=== PATIENT | male | born 1950 | race Caucasian/White ===

== ENCOUNTER → 2023-03-06 | Outpatient (CLI) | payer MEDICARE ==
--- NOTE | 2023-03-06 10:24 | PE ---
EXAMINATION TYPE: PET CT fusion skull to thigh DATE OF EXAM: 03/06/2023 COMPARISON: No recent pertinent CT Prior PET/CT: None at this location HISTORY: Prostate cancer TECHNIQUE: Following the intravenous administration of 5.84 mCi gallium PSMA, whole body images are performed from the skull base to the midthigh. Images are reviewed on the computer in the coronal, a xial, and sagittal planes. Reconstructed rotating images are created on independent workstation and reviewed on the computer. A localization and attenuation correction CT is performed in conjunction with the PET scan. DLP: 734.61 mGycm SCAN: Initial Blood glucose: NA mg/dL FINDINGS: NECK: There is normal uptake through the salivary glands. THORAX: No abnormal uptake ABDOMEN: No abnormal uptake PELVIS: Subtle uptake is within the posterior left prostate with an SUV of 7.25. OSSEOUS STRUCTURES: No abnormal uptake. LOCALIZATION CT: Shunt catheter is within the brain ventricular system. Diverticular changes are with in the sigmoid colon COMPARISON: None IMPRESSION: 1. Small focal area of uptake within the left prostate can be compatible with the patient's prostate cancer. 2. No suspicious uptake to suggest metastatic disease.
== END | disposition home or self-care (01) ==
LOC: RADPETMAIN 08:08
PROVIDERS: ATTEND Urology
DX: C61 Malignant neoplasm of prostate (principal)
CPT/HCPCS: 78815; A9596

== ENCOUNTER → 2023-03-11 | Outpatient (CLI) | payer MEDICARE ==
[2023-03-11 19:18] LABS: Basophils # (A) 0.06 X 10*3/uL (0.00-0.10); Eosinophils # (A) 0.22 X 10*3/uL (0.04-0.35); Eosinophils % (A) 3.6 %; HCT 48.7 % (39.6-50.0); HGB 15.8 g/dL (13.0-17.0); Lymphocytes # (A) 1.11 X 10*3/uL (0.90-5.00); Lymphocytes % (A) 18.3 %; MCH 31.7 pg (27.0-32.0); MCHC 32.4 g/dL (32.0-37.0); MCV 97.8 FL (80.0-97.0); Mean Platelet Volume 10.9 FL (9.5-12.2); Monocytes # (A) 0.53 X 10*3/uL (0.20-1.00); Monocytes % (A) 8.7 %; NRBC Per 100 WBC 0 X 10*3/uL (0.00-0.01); Neutrophils # (A) 4.13 X 10*3/uL (1.80-7.70); Neutrophils % (A) 67.9 %; Platelet Count 208 X 10*3/uL (140-440); RBC 4.98 X 10*6/uL (4.40-5.60); RDW 13.5 % (11.5-14.5); WBC 6.08 X 10*3/uL (4.50-10.00)
[2023-03-11 19:23] LABS: Blood Urea Nitrogen 15.5 mg/dL (9.0-27.0); Calcium 9.9 mg/dL (8.7-10.3); Chloride 105 mmol/L (96-109); Glucose 100 mg/dL (70-110); Potassium 4.6 mmol/L (3.5-5.5); Sodium 144 mmol/L (135-145)
[2023-03-11 21:29] LABS: Appearance,Urine Clear (Clear); Bilirubin,Urine Negative (Negative); Blood,Urine Negative (Negative); Color,Urine Yellow (Yellow); Ketones,Urine Negative (Negative); Nitrite,Urine Negative (Negative); Specific Gravity,Urine 1.011 (1.001-1.030); Urobilinogen,Urine 0.2 E.U./DL
[2023-03-11 21:39] LABS: Bacteria,Urine None Seen (None Seen)
== END | disposition home or self-care (01) ==
LOC: LABPAT 11:58
PROVIDERS: ATTEND Urology
DX: Z01.812 Encounter for preprocedural laboratory examination (principal); C61 Malignant neoplasm of prostate
CPT/HCPCS: 80048; 81001; 85025; 86850; 86900; 86901; 87086

== ENCOUNTER → 2023-03-18 | Outpatient (CLI) | payer MEDICARE | END | disposition home or self-care (01) | LOC: LABPAT 09:43 | PROVIDERS: ATTEND Urology | DX: Z01.818 Encounter for other preprocedural examination (principal); I51.7 Cardiomegaly; R94.31 Abnormal electrocardiogram [ECG] [EKG] | CPT/HCPCS: 93005 ==

== ENCOUNTER 2023-03-20 05:49 | Day surgery (SDC) | payer MEDICARE ==
[2023-03-17 12:01] VITALS: BMI 27.1
[~2023-03-20 05:49] MED LIST: HEPARIN SODIUM,PORCINE 5,000 UNIT/ML 1 ML VIAL SQ PRN
[2023-03-20] MEDS ORDERED: ONDANSETRON 4 MG/2 ML VIAL IVP ONE (06:13)
[2023-03-20] MEDS ORDERED: DEXAMETHASONE SOD PHOSPHATE 4 MG/ML 1 ML VIAL IV ONE (06:13)
[2023-03-20] MEDS: LACTATED RINGERS 1,000 ML IV SCH ×2 (06:55→07:00)
[2023-03-20] MEDS ORDERED: MIDAZOLAM 2 MG/2 ML VIAL IV PRN (07:00)
[2023-03-20] MEDS ORDERED: HYDROmorphone 0.5 MG/0.5 ML SYRINGE IVP PRN (07:00)
--- NOTE | 2023-03-20 07:32 | P.HPIHPCON ---
History of Present Illness H&P Date: 03/20/23 Chief Complaint: prostate cancer This is a 73-year-old male with history of [place] 7 prostate cancer. Option of radiation versus robotic radical prostatectomy was discussed with him in detail. aware of the risk which includes but not limited to bleeding, infection, Erec tile dysfunction, urinary incontinence. Discussed the need for postoperative surveillance for cancer recurrence a potential of needing additional treatment. Risk of anesthesia was also discussed. Discussed also with him given his history of ALL SOURCE INTELLIGENCE shunt potential of injury to the shunt potential of significant adhesion might not be able to do the procedure. All this was discussed in detail with him and his . He understood all the risk and agreed to proceed Consent for Procedure: I have explained the operation/procedure to the patient, including the risks, benefits, side effects, alternative therapies (including not receiving the proposed treatment or service), the likelihood of the patient achieving his/her goals, and potential recuperation problems for the procedure/sedation/analgesia, as well as any blood products, if indicated. I also explained to the patient the risks, benefits and side effects of the alternatives, as well as the risks related to not receiving the proposed procedure, care, treatment, or services. Past Medical History Past Medical History: Cancer, GERD/Reflux, Hyperlipidemia, Osteoarthritis (OA), Respiratory Disorder Additional Past Medical History / Comment(s): asbestosis (has a lot of phlegm in the mornings), hx melanoma, hx hydrocephalus, sigmoid diverticulosis found on colonoscopy,steroid injection to ganglion cyst to toe Nov 2015, PRECANCEROUS LESION REMOVED FROM CHEST.LT CATARACT. History of Any Multi-Drug Resistant Organisms: None Reported Past Surgical History: Appendectomy, Joint Replacement, Orthopedic Surgery, Tonsillectomy Additional Past Surgical History / Comment(s): ALL SOURCE INTELLIGENCE shunt, cataracts, skin lesions, [place] knee arthroscopy, colonoscopy with polypectomy,RT total knee,melanoma removed upper mid back, RT EYE CATARCT REMOVED, 01-07-16 TOTAL LT KNEE REPLACMENT, RECENT DENTAL WORK WAS ON AMOXICILLIN. Past Anesthesia/Blood Transfusion Reactions: No Reported Reaction Additional Past Alcohol Use History / Comment(s): Patient smoked briefly for 3-4 years. He denies any medical marijuana, marijuana, street drug use. Patient is retired from [employer] where he worked as a [employer] and [employer]. He lives at home with his . - Past Family History Mother Family Medical History: No Reported History Additional Family Medical History / Comment(s): at age 35. Father Family Medical History: Congestive Heart Failure (CHF) Medications and Allergies Home Medications Medication Instructions Recorded Confirmed Type Simvastatin [Zocor] 20 mg PO DAILY 03/17/23 03/20/23 History Allergies Allergy/AdvReac Type Severity Reaction Status Date / Time No Known Allergies Allergy Verified 03/20/23 06:21 Surgical - Exam - General no distress, no pain - Eyes normal ocular movement, no pale - Respiratory normal expansion, normal respiratory effort - Abdomen Abdomen: soft, non tender Assessment and Plan Assessment: OR for robotic radical prostatectomy with pelvic lymph node dissection
--- NOTE | 2023-03-20 07:43 | P.ANPRN ---
Procedure Note - Anesthesia - Nerve Block Performed Bilateral Erector Spinae Single Time Out Performed: Yes Date of Procedure: 03/20/23 Procedure Start Time: 07:15 Location of Patient: PreOp Indication: Acute Post-Operative Pain, Analgesia, Requested by Surgeon Sedation Type: Sedate with meaningful contact maintained Preparation: Sterile Prep Position: Sitting Catheter: None Needle Types: Pajunk Needle Gauge: 21 Ultrasound used to visualize needle placement: Yes Ultrasound used to observe medication spread: Yes Injectate: 0.5% Ropivacaine (see comment for volume) (Ropivacaine 15ml+NS5ml) Blood Aspirated: No Pain Paresthesia on Injection Noted: No Resistance on Injection: Normal Image Stored and Saved: Yes Events: Uneventful and Well Tolerated
[2023-03-20] MEDS ORDERED: HYDROmorphone (PF) 1 MG/ML ONE (07:44)
[2023-03-20] MEDS ORDERED: SODIUM CHLORIDE 0.9% (PF) 10 ML VIAL ONE (07:44)
[2023-03-20] MEDS ORDERED: ROPIVACAINE 5 MG/ML 30 ML VIAL ONE (07:44)
[2023-03-20] MEDS ORDERED: NEOSTIGMINE 1 MG/ML 10 ML VIAL ONE (07:44)
[2023-03-20] MEDS ORDERED: LIDOCAINE 1% INJ 10MG/ML (20 ML MDV) ONE (07:44)
[2023-03-20] MEDS ORDERED: ROCURONIUM 10 MG/ML (5 ML VIAL) IV ONE (07:44)
[2023-03-20] MEDS ORDERED: fentaNYL (PF) 50 MCG/ML 2 ML AMP ONE (07:44)
[2023-03-20] MEDS ORDERED: MIDAZOLAM 2 MG/2 ML VIAL ONE (07:44)
[2023-03-20] MEDS ORDERED: SUCCINYLCHOLINE CHLORIDE 200 MG/10 ML VIAL IV ONE (07:44)
[2023-03-20] MEDS ORDERED: PROPOFOL 10 MG/ML 20 ML VIAL IV ONE (07:44)
[2023-03-20] MEDS ORDERED: GLYCOPYRROLATE 0.2 MG/ML 2 ML VIAL ONE (07:44)
[2023-03-20] MEDS ORDERED: ONDANSETRON 4 MG/2 ML VIAL IVP PRN (07:58)
[2023-03-20] MEDS ORDERED: HYDROcodone/APAP 5-325MG 1 EACH TAB PO PRN (07:59)
[2023-03-20] MEDS ORDERED: D5-0.45% NACL WITH KCL 20MEQ/L 1,000 ML IV SCH (08:00)
[2023-03-20] MEDS ORDERED: BUPIVACAINE (PF) 0.25% 30 ML VIAL SQ ONE ×3 (08:18→11:57)
[2023-03-20 08:23] VITALS: RESP 16
[2023-03-20] MEDS ORDERED: LACTATED RINGERS 1,000 ML IV ONE (11:57)
--- NOTE | 2023-03-20 12:18 | P.OP ---
Date of Procedure: 03/20/23 Preoperative Diagnosis: Prostate cancer Postoperative Diagnosis: same Procedure(s) Performed: robotic assisted laproscopic radical prostatecomy and bilateral pelvic lymph node dissection Implants: none Anesthesia: MICHELLEA Surgeon: Robinson Fernandes Estimated Blood Loss (ml): 150 Pathology: other (prostate bilateral seminal vesicle and bilateral pelvic lymph node) Condition: stable Disposition: PACU Indications for Procedure: This is a 73-year-old male with history of [place] 7 prostate cancer. Option of radiation versus robotic radical prostatectomy was discussed with him in detail. aware of the risk which includes but not limited to bleeding, infection, Erectile dysfunction, urinary incontinence. Discussed the need for postoperative surveillance for cancer recurrence a potential of needing additional treatment. Risk of anesthesia was also discussed. Discussed also with him given his history of MILITARY LOGISTICS SPECIALIST shunt potential of injury to the shunt potential of significant adhesion might not be able to do the procedure. All this was discussed in detail with him and his . He understood all the risk and agreed to proceed Description of Procedure: After preoperative antibiotics were started, the patient was taken to the operating room. Anesthesia was induced and the patient was placed in a supine position, with adequate padding of the pressure points, shoulders, back, legs and arms. He was then prepped and draped in the standard fashion. A critical pause was performed using two patient identifiers. A 16F dooley catheter was placed to gravity drainage. A pneumo-peritoneum was created with placement of a Veress needle to 20 mm Hg without complication, and a 8 Fr trocar was placed above the umbillicus. Under direct vision a 8mm robotic ports was placed lateral to each rectus slightly below the camera port. The left iliac fossa 8mm port was placed. The right trust administrative assistant right iliac fossa 12mm port and right paramedian 5mm portwere placed. After the patient was placed in the trendelenberg position, the robot was then docked to the 8mm robotic ports and then each robotic arm and tower was checked in relation to the patient's legs and hands to avoid inadvertent compression. The peritoneal cavity was inspected. Patient had adhesion along the left lower quadrant the sigmoid was adhered to the left side the pelvic sidewall, those adhesions were taken down sharply. The MILITARY LOGISTICS SPECIALIST shunt was visualized, and it was away from dissection An inverted U-shaped incision began laterally to the left medial umbilical ligament and extended high across the midline to the right umbilical ligament. The limbs of the "U" extended to the level of the vasa on both sides. We next developed the preperitoneal space and the space of Retzius. Cautery was used to dissected the bladder away from the prostate. After the anterior bladder neck was incised and the bladder entered the the posterior bladder neck was exposed and the ureteral orifces identified. The posterior bladder neck was then incised and dissected away from the prostate. The vas and the seminal vesicles were now exposed and dissected to their insertions into the prostate and were not spared. The posterior layer of the Denonvillier's fascia was incised to enter lilli the plane between prostate and perirectal fat. Each lateral pedicle was controlled with clips and cautery for hemostasis. No nerve preservation was performed on the left, partial nerve preservation was performed on the right The puboprostatic ligament was incised where it inserted into the apex of the prostate and a plane between urethra and dorsal venous complex developed to expose the anterior urethral surface. The anterior wall of the urethra was transected with the cut setting a few millimeters distal to the apex of the prostate. The dorsal vein was ligated using 3-0 V lock bilateral obturator and external iliac lymph node packets were carefully dissected after careful visualization of the hypogastric artery and obturator nerve. There was careful attention paid to hemostasis with judicious use of cautery. The urethrovesical anastomosis was performed . the posterior denovillers was reapproximated using 3-0 V lock. A 6 and 6 inch 3-0 V-Lock suture was used to anastomose the urethra and bladder, starting at the 6:00 posterior position. Mucosa was secured in every stitch, to ensure a mucosa to mucosa anastomosis. The stitch was regularly cinched and the anastomosis tightened. Care was taken to not violate the ureteral orifices. The Dooley catheter was advanced, the bladder filled, and the anastomosis was tested, as described above. Anastomsis was watertight at 150 mL. the MILITARY LOGISTICS SPECIALIST shunt was also visualized at the end of the case, there was no injury to the shunt The periumbilical fascia was closed with 1-0-PDS suture in running fashion. All ports were closed with a subcuticular 4-0 monocryl and Dermabond. Sponge, instrument, and needle counts were correct at the end of the case x2. All specimens including prostate and lymph nodes were sent to pathology for diagnosis and will be available in a week. The patient tolerated the surgery well and without complication. He awoke without difficulty and was taken to the recovery room in stable condition
[2023-03-20] MEDS: KETOROLAC 15 MG/ML 1 ML VIAL IVP SCH ×2 (14:51→20:45)
[2023-03-20] MEDS: D5-0.45% NACL WITH KCL 20MEQ/L 1,000 ML IV SCH ×2 (14:51→23:03)
[2023-03-20] MEDS: HEPARIN SODIUM,PORCINE 5,000 UNIT/ML 1 ML VIAL SQ SCH ×2 (16:54→23:05)
[2023-03-20] MEDS ORDERED: ATORVASTATIN 10 MG TAB PO SCH (21:00)
[2023-03-21] MEDS: KETOROLAC 15 MG/ML 1 ML VIAL IVP SCH ×3 (02:30→13:12)
[2023-03-21] MEDS: D5-0.45% NACL WITH KCL 20MEQ/L 1,000 ML IV SCH (06:31)
[2023-03-21 08:24] VITALS: BP 132/75; PULSE 71; TEMP 98.7
[2023-03-21] MEDS: HEPARIN SODIUM,PORCINE 5,000 UNIT/ML 1 ML VIAL SQ SCH (09:52)
--- NOTE | 2023-03-21 11:44 | P.DS ---
Providers Date of admission: 03/20/23 Expected date of discharge: 03/21/23 Attending physician: Robinson Fernandes MD Primary care physician: Stated None Hospital Course: On the day of admission, the patient underwent an uncomplicated robotic assisted laparoscopic prostatectomy. The perioperative course was unremarkable. The patient remained afebrile stable vital signs. Urine output was good. On the first postoperative day, he tolerated breakfast and was not experiencing nausea. He did report supraumbilical incisional discomfort and had not yet ambulated. On examination, the abdomen was soft and non-distended. Incisions were clean, dry, and intact. The Bowles catheter was draining clear yellow urine. Procedures: Robotic-assisted laparoscopic prostatectomy (RALP) with bilateral pelvic lymphadenectomy on 03/20/2023 Patient Condition at Discharge: Good Plan - Discharge Summary Discharge Rx Participant: Yes New Discharge Prescriptions: New Ketorolac [Toradol] 10 mg PO Q6HR PRN #10 tab PRN Reason: Pain Ciprofloxacin HCl [Cipro] 250 mg PO Q12HR 3 Days #6 tab No Action Simvastatin [Zocor] 20 mg PO DAILY Discharge Medication List Simvastatin [Zocor] 20 mg PO DAILY 03/17/23 [History] Ciprofloxacin HCl [Cipro] 250 mg PO Q12HR 3 Days #6 tab 03/21/23 [Rx] Ketorolac [Toradol] 10 mg PO Q6HR PRN #10 tab 03/21/23 [Rx] Follow up Appointment(s)/Referral(s): Robinson Fernandes MD [STAFF PHYSICIAN] - 1 Week Activity/Diet/Wound Care/Special Instructions: Discharge home with Bowles catheter. Please provide patient with an overnight drainage bag as well as a urinary leg bag, and instruct him on the use of both. Okay to shower. Diet as tolerated. No lifting, driving, or strenuous activity. Begin taking ciprofloxacin one day prior to follow-up appointment. Please reassure patient that it is common to experience the following: Hematuria, urinary leakage around the catheter, abdominal wall bruising, and penoscrotal swelling. Discharge Disposition: HOME SELF-CARE
== END 2023-03-21 14:59 | disposition home or self-care (01) ==
LOC: OR 05:49 → 5NMEDONC 12:00 → OR 03-21 14:59
PROVIDERS: ATTEND Urology
DX: C61 Malignant neoplasm of prostate (principal); G89.18 Other acute postprocedural pain; E78.5 Hyperlipidemia, unspecified; K21.9 Gastro-esophageal reflux disease without esophagitis; M19.90 Unspecified osteoarthritis, unspecified site; Z90.89 Acquired absence of other organs; Z98.890 Other specified postprocedural states; Z82.49 Family history of ischemic heart disease and other diseases of the circulatory system; Z79.899 Other long term (current) drug therapy
CPT/HCPCS: 55866; 38571; 64999; 88344; 88307; 88309; 88341; J2250; J0330; J1644 ×2; J1100; J2710; J0690; J2405; J2001; J3010; J1170; J2795; J1885 ×2; J2704; J0665

== ENCOUNTER 2023-03-24 00:21 | Emergency (ER) | payer MEDICARE ==
[2023-03-24 00:57] VITALS: BP 167/85; PULSE 74; RESP 18; TEMP 98
--- NOTE | 2023-03-24 02:02 | ED ---
Male Urogenital HPI - General Chief complaint: Urogenital Stated complaint: Cath issues Time Seen by Provider: 03/24/23 01:35 Source: patient, RN notes reviewed Mode of arrival: ambulatory Limitations: no limitations - History of Present Illness Initial comments: This is a 73 year old male who presents to the emergency department for concerns of problems related to his Bowles catheter. Patient had a prostatectomy on 03/20 due to prostate cancer. He has had a Bowles catheter in place since. He initially had a lot of drainage, however there was concern tonight that the urine was stuck in the tube and not adequately draining. Patient did not exhibit any pain associated with this. Not currently on any antibiotics. States that since being in the emergency department, this has started to drain again. - Related Data Home Medications Medication Instructions Recorded Confirmed Simvastatin [Zocor] 20 mg PO DAILY 03/17/23 03/20/23 Previous Rx's Medication Instructions Recorded Ciprofloxacin HCl [Cipro] 250 mg PO Q12HR #6 tablet 03/21/23 Ciprofloxacin HCl [Cipro] 250 mg PO Q12HR 3 Days #6 tab 03/21/23 Ketorolac [Toradol] 10 mg PO Q6HR PRN #10 tab 03/21/23 Ketorolac [Toradol] 10 mg PO Q6HR PRN #10 tab 03/21/23 Allergies Allergy/AdvReac Type Severity Reaction Status Date / Time No Known Allergies Allergy Verified 03/24/23 00:41 Review of Systems ROS Statement: Those systems with pertinent positive or pertinent negative responses have been documented in the HPI. ROS Other: All systems not noted in ROS Statement are negative. Past Medical History Past Medical History: Cancer, GERD/Reflux, Hyperlipidemia, Osteoarthritis (OA), Respiratory Disorder Additional Past Medical History / Comment(s): asbestosis (has a lot of phlegm in the mornings), hx melanoma, hx hydrocephalus, sigmoid diverticulosis found on colonoscopy,steroid injection to ganglion cyst to toe Nov 2015, PRECANCEROUS LESION REMOVED FROM CHEST.LT CATARACT. History of Any Multi-Drug Resistant Organisms: None Reported Past Surgical History: Appendectomy, Joint Replacement, Orthopedic Surgery, Tonsillectomy Additional Past Surgical History / Comment(s): ACCOUNT EXECUTIVE shunt, cataracts, skin lesions, [place] knee arthroscopy, colonoscopy with polypectomy,RT total knee,melanoma removed upper mid back, RT EYE CATARCT REMOVED, 01-07-16 TOTAL LT KNEE REPLACMENT, RECENT DENTAL WORK WAS ON AMOXICILLIN. Past Anesthesia/Blood Transfusion Reactions: No Reported Reaction Past Psychological History: No Psychological Hx Reported Smoking Status: Never smoker Past Alcohol Use History: Occasional Past Drug Use History: None Reported - Past Family History Mother Family Medical History: No Reported History Additional Family Medical History / Comment(s): at age 35. Father Family Medical History: Congestive Heart Failure (CHF) General Exam Limitations: no limitations General appearance: alert, in no apparent distress Head exam: Present: atraumatic, normocephalic, normal inspection Respiratory exam: Present: normal lung sounds bilaterally. Absent: respiratory distress, wheezes, rales, rhonchi, stridor Cardiovascular Exam: Present: regular rate, normal rhythm, normal heart sounds. Absent: systolic murmur, diastolic murmur, rubs, gallop, clicks GI/Abdominal exam: Present: soft, normal bowel sounds. Absent: distended, tenderness, guarding, rebound, rigid Neurological exam: Present: alert, oriented X3, CN II-XII intact Psychiatric exam: Present: normal affect, normal mood Skin exam: Present: warm, dry, intact, normal color. Absent: rash Course Vital Signs 03/24/23 00:35 Temperature 98 F Pulse Rate 74 Respiratory 18 Rate Blood Pressure 167/85 O2 Sat by Pulse 96 Oximetry Medical Decision Making - Medical Decision Making This is a 73-year-old male who presents to the emergency department for urinary retention and Bowles catheter problems. Was pt. sent in by a medical professional or institution? @ -No Did you speak to anyone other than the patient for history? @ -No Did you review nursing and triage notes? @ -Yes, and I agree, it is accurate with regards to the patient's symptoms. Were old charts reviewed? @ -No Differential Diagnosis? @ -Differential Urinary Retention/Bowles Catheter Problems: UTI, malposition, blood clot, this is not meant to be an all-inclusive list. EKG interpreted by me (3pts min.)? @ -Not obtained X-rays interpreted by me (1pt min.)? @ -Not obtained CT interpreted by me (1pt min.)? @ -Not obtained U/S interpreted by me (1pt. min.)? @ -Not obtained What testing was considered but not performed? (CT, X-rays, U/S, labs)? Why? @ -None What meds were considered but not given? Why? @ -None Did you discuss the management of the patient with other professionals? @ -No Did you reconcile home meds? @ -No Was smoking cessation discussed for >3mins.? @ -No Was critical care preformed (if so, how long)? @ -No Were there social determinants of health that impacted care today? How? (Homelessness, low income, unemployed, alcoholism, drug addiction, transportation, low edu. Level, literacy, decrease access to med. care, [facility], rehab)? @ -No Was there de-escalation of care discussed even if they declined? (Discuss DNR or withdrawal of care, Hospice)? @ -No What co-morbidities impacted this encounter? (DM, HTN, Smoking, COPD, CAD, Cancer, CVA, Hep., AIDS, mental health diagnosis, sleep apnea, morbid obesity)? @ -Prostate cancer Was patient admitted / discharged? @ -Discharged. After sitting in the waiting room for a period of time, his Bowles catheter did appear to be draining again. Nursing staff educated the patient that there is typically a large amount of output initially after surgery, and this starts to decrease as the days progress. Bladder scan was performed demonstrating an estimate of 11-30 mL. Patient also continued to remain asymptomatic. Urine demonstrates blood, which is expected given the recent surgery. This is not overtly positive for infection, however urine was sent for culture. He was otherwise instructed to follow up with urology. Undiagnosed new problem with uncertain prognosis? @ -None Drug Therapy requiring intensive monitoring for toxicity (Heparin, Nitro, Insulin, Cardizem)? @ -None Were any procedures done? @ -None Diagnosis/symptom? @ -S/p prostatectomy Acute, or Chronic, or Acute on Chronic? @ -Acute Uncomplicated (without systemic symptoms) or Complicated (systemic symptoms)? @ -Uncomplicated Side effects of treatment? @ -None Exacerbation, Progression, or Severe Exacerbation] @ -Not applicable Poses a threat to life or bodily function? @ -No Return precautions reviewed in depth, the patient is instructed to return to the emergency department with any new, worsening, or concerning symptoms. Patient verbalized understanding. This case was discussed in detail with the attending ED physician, Dr. Gutiérrez. Presentation, findings, and treatment plan discussed in detail as well. - Lab Data Lab Results 03/24/23 Range/Units 02:00 Urine Color Yellow Urine Appearance Clear (Clear) Urine pH 5.5 (5.0-8.0) Ur Specific [place] 1.016 (1.001-1.035) Urine Protein 1+ H (Negative) Urine Glucose (UA) Negative (Negative) Urine Ketones Negative (Negative) Urine Blood Large H (Negative) Urine Nitrite Negative (Negative) Urine Bilirubin Negative (Negative) Urine Urobilinogen <2.0 (<2.0) mg/dL Ur Leukocyte Esterase Moderate H (Negative) Urine RBC >182 H (0-5) /hpf Urine WBC 8 H (0-5) /hpf Ur Squamous Epith Cells <1 (0-4) /hpf Urine Bacteria Rare H (None) /hpf Hyaline Casts 1 (0-2) /lpf Urine Mucus Few H (None) /hpf Disposition Clinical Impression: S/P prostatectomy Disposition: HOME SELF-CARE Additional Instructions: Return to the emergency department with any new, worsening, or concerning symptoms. We will contact you if your urine is positive for infection. Follow up with urology. Is patient prescribed a controlled substance at d/c from ED?: No Referrals: None,Stated [Primary Care Provider] - 1-2 days
[2023-03-24 03:09] LABS: Appearance,Urine Clear (Clear); Bacteria,Urine Rare /hpf; Bilirubin,Urine Negative (Negative); Blood,Urine Large (Negative); Color,Urine Yellow; Glucose,Urine (UA) Negative (Negative); Hyaline Casts,Urine 1 /lpf (0-2); Ketones,Urine Negative (Negative); Leukocyte Esterase,Urine Moderate (Negative); Mucus,Urine Few /hpf; Nitrite,Urine Negative (Negative); PH, Urine 5.5 (5.0-8.0); Protein,Urine 1+ (Negative); RBC,Urine >182 /hpf (0-5); Specific Gravity,Urine 1.016 (1.001-1.035); Squamous Epithelial Cell,Urine <1 /hpf (0-4); Urobilinogen,Urine <2.0 mg/dL (<2.0); WBC,Urine 8 /hpf (0-5)
== END 2023-03-24 02:10 | disposition home or self-care (01) ==
LOC: EC 00:21
DX: Z90.79 Acquired absence of other genital organ(s) (principal); E78.5 Hyperlipidemia, unspecified; Z79.899 Other long term (current) drug therapy
CPT/HCPCS: 51798; 81001; 99284

== ENCOUNTER 2024-08-30 09:20 | Day surgery (SDC) | payer MEDICARE ==
[2024-08-29 10:26] VITALS: BMI 27.1
[~2024-08-30 09:20] MED LIST changes: -HEPARIN SODIUM,PORCINE 5,000 UNIT/ML 1 ML VIAL SQ PRN; +LIDOCAINE 1% (10MG/ML) FOR IV START INTRADERMA PRN
[2024-08-30 09:57] VITALS: TEMP 97.9
[2024-08-30] MEDS ORDERED: PROPOFOL 10 MG/ML 20 ML VIAL IV ONE (09:59)
[2024-08-30] MEDS ORDERED: LIDOCAINE 1% INJ 10MG/ML (20 ML MDV) ONE (09:59)
[2024-08-30] MEDS: LACTATED RINGERS 1,000 ML IV SCH (10:04)
[2024-08-30] MEDS: IV FLUID CONTINUATION 1,000 ML IV ONE (10:05)
--- NOTE | 2024-08-30 10:37 | P.PCN ---
Date of Procedure: 08/30/24 Procedure(s) Performed: BRIEF HISTORY: Patient is a 74-year-old pleasant white male scheduled for an elective colonoscopy as a part of screening for by history of colon polyps but his last colonoscopy was in December 2020 and was noted to have 3 polyps all of which were tubular adenoma. PROCEDURE PERFORMED: Colonoscopy. PREOPERATIVE DIAGNOSIS: Screening for history of colon polyp. IV sedation per Anesthesia. PROCEDURE: After informed consent was obtained, the patient, was brought into the endoscopy unit. IV sedation was administered by Anesthesia under continuous monitoring. Digital rectal examination was normal. Initially the Olympus CF-160 flexible video colonoscope was then inserted in the rectum, gradually advanced into the cecum without any difficulty. Careful examination was performed as the scope was gradually being withdrawn. Ileocecal valve and the appendiceal orifice were visualized and appeared normal. Prep was excellent. Mucosa of the cecum, ascending colon, transverse colon, descending colon, sigmoid colon, and rectum appeared normal. Scattered sigmoid diverticulosis retroflexion was performed in the rectum and no lesions were seen. The patient tolerated the procedure well. IMPRESSION: Normal-appearing colon from rectum to cecum with no evidence of colorectal shawn plasia. Scattered sigmoid diverticulosis. RECOMMENDATIONS: Findings of this examination were discussed with the patient as well as his family. He was advised to have repeat screening colonoscopy in 10 years by.
[2024-08-30 10:48] VITALS: RESP 16
[2024-08-30] MEDS: ACETAMINOPHEN TAB 325 MG TAB PO STA (11:02)
[2024-08-30 11:08] VITALS: BP 143/90; PULSE 77
== END 2024-08-30 11:21 | disposition home or self-care (01) ==
LOC: ORWHC2ENDO 09:20
PROVIDERS: ATTEND Internal Medicine Gastroenterology
DX: Z12.11 Encounter for screening for malignant neoplasm of colon (principal); K57.30 Diverticulosis of large intestine without perforation or abscess without bleeding; K21.9 Gastro-esophageal reflux disease without esophagitis; E78.5 Hyperlipidemia, unspecified; M19.90 Unspecified osteoarthritis, unspecified site; Z86.0100 Personal history of colon polyps, unspecified; Z79.899 Other long term (current) drug therapy
CPT/HCPCS: J2003; J2704; G0105